=== PATIENT | male | born 1995 | race Caucasian/White ===

== ENCOUNTER 2019-12-27 14:39 | Outpatient (CLI) | payer MEDICARE, MEDICAID, SELFPAY ==
--- NOTE | 2019-12-27 14:50 | XR_ITS ---
WS: [id number] LEFT ANKLE: 2 VIEW(S) TECHNIQUE: AP and lateral. HISTORY: left ankle pain COMPARISON: 02/16/2013 Normal anatomic alignment with no fracture or dislocation. No joint effusion or widening of the ankle mortise. No significant degenerative changes at the joint spaces. No soft tissue abnormality. XR/XR ankle LT 2V [id number] IMPRESSION: Normal LEFT ankle.
--- NOTE | 2019-12-27 14:50 | XR_ITS ---
WS: [id number] RIGHT ANKLE: 2 VIEW(S) TECHNIQUE: AP and lateral. HISTORY: right ankle pain COMPARISON: 08/07/2016 Normal anatomic alignment with no fracture or dislocation. No joint effusion or widening of the ankle mortise. Significant spurring and hypertrophic changes from the anterior talar process. Similar to the prior s tudy. No soft tissue abnormality. XR/XR ankle RT 2V [id number] IMPRESSION: Negative RIGHT ankle. Large hypertrophic osteophyte is again noted from the anterior talar process.
== END 2019-12-27 14:40 | disposition home or self-care (01) ==
LOC: RADWPI 14:46
PROVIDERS: Family Provider Family Medicine; PCP Family Medicine; Visit Provider Family Medicine
DX: M25.571 Pain in right ankle and joints of right foot (principal); M25.572 Pain in left ankle and joints of left foot; M25.771 Osteophyte, right ankle
CPT/HCPCS: 73600

== ENCOUNTER 2020-01-17 15:32 | Outpatient (CLI) | payer MEDICARE, MEDICAID, SELFPAY | END 2020-01-17 15:33 | disposition home or self-care (01) | LOC: SPT 15:40 | PROVIDERS: Family Provider Family Medicine; PCP Family Medicine; Visit Provider Podiatrist Foot & Ankle Surgery | DX: Z46.89 Encounter for fitting and adjustment of other specified devices (principal); M25.572 Pain in left ankle and joints of left foot | CPT/HCPCS: 97760; L1902 ==

== ENCOUNTER → 2020-03-19 11:17 | Outpatient (BNVA) | payer MEDICARE, MEDICAID, SELFPAY | PROVIDERS: Family Provider Family Medicine; PCP Family Medicine; Visit Provider Family Medicine | DX: U07.1 COVID-19 (principal) | CPT/HCPCS: 87635 ==

== ENCOUNTER 2021-12-30 09:01 | Emergency (ER) | payer MEDICARE, MEDICAID, SELFPAY ==
[2021-12-30 09:15] VITALS: BP 146/95; PULSE 76; RESP 16; TEMP 36.8; O2SAT 97; BMI 41.5
--- NOTE | 2021-12-30 12:24 | ED_ITS ---
HPI - Allergic Reaction General: Chief complaint: Allergic Reaction Stated complaint: Face swelling Time Seen by Provider: 12/30/21 09:05 Source: patient Mode of arrival: ambulatory Limitations: no limitations History of Present Illness: HPI narrative: 26-year-old male comes in facial swelling swelling in his hands he also some in the genitalia. He was doing some yard work couple days ago he thinks he got exposed to poison [place] touched various places on his body now he has swelling and a superficial rash. He has not had any fever sweats or chills no difficulty breathing or swallowing. He is taken Benadryl at home with moderate relief MD complaint: allergic reaction Associated symptoms: Reports facial swelling, itching, lip swelling and rash; Deny difficulty breathing, dysphagia, hoarseness, nausea or tongue swelling Severity: moderate Treatment prior to arrival: benadryl Previous Allergic Reaction History: none Review of Systems Const: Denies: fever(s), chills, body aches, change in appetite, fatigue or malaise ENMT: Denies: hoarseness Card: Denies: chest pain, edema, dyspnea on exertion or orthopnea Resp: Denies: dyspnea, productive cough or non-productive cough GI: Denies: nausea or dysphagia : Denies: flank pain, dysuria, urinary frequency or urinary urgency Skin/Breast: Denies: rash or pruritus All/Imm: Reports: facial swelling; Denies: tongue swelling PFSH ED PFSH: Medical History History of amputation of finger Family History Other CAD (coronary artery disease) Cancer Social History Smoking and tobacco status: never smoked Alcohol intake: current Alcohol intake frequency: holidays/special occasions only Physical Exam Const: GENERAL APPEARANCE: cooperative and comfortable ORIENTATION/CONSCIOUSNESS: Yes awake, Yes oriented to person, Yes oriented to place and Yes oriented to time HENMT: COMMON NORMALS: normocephalic, atraumatic, hearing grossly normal bilaterally, external ears normal, EAC's normal, TM's normal bilaterally, Normal nasal mucous membranes and turbinates present, moist oral mucous membranes and oropharynx normal HEAD & SCALP: normocephalic and atraumatic NOSE: Normal nasal mucous membranes and turbinates present EXTERNAL EAR: Yes external ears normal EXTERNAL AUDITORY CANAL: EAC's normal TYMPANIC MEMBRANE: TM's normal bilaterally Eye: COMMON NORMALS: Equal, round and reactive pupils present, EOMs intact bilaterally, conjunctivae normal and no scleral icterus CONJUNCTIVA: Yes conjunctivae normal PUPIL: Yes Equal, round and reactive pupils present Neck/C-Spine: COMMON NORMALS: no JVD Lymph: LYMPHATIC: no lymphadenopathy noted and no lymphedema noted Resp: COMMON NORMALS: normal respiratory effort, No retractions, No use of accessory muscles and clear to auscultation bilaterally AUSCULTATION: clear to auscultation bilaterally Cardio: COMMON NORMALS: no JVD, regular rate, regular rhythm and No murmurs present (Cardio) RATE: regular rate RHYTHM: regular rhythm GI: COMMON NORMALS: Soft to palpation and No hepatosplenomegaly present AUSCULTATION: Yes normoactive bowel sounds PALPATION: Yes Soft to palpation, No Tenderness to palpation present (GI), No Guarding due to palpation present (GI) and Yes No hepatosplenomegaly present Extremity: COMMON NORMALS: capillary refill normal, no clubbing, cyanosis or edema, no calf tenderness and no pedal edema Neuro: SENSORIUM/ORIENTATION: Yes oriented to person, Yes oriented to place and Yes oriented to time Skin: OTHER: Significant facial swelling as well as redness erythema Claire dermatitis rash consistent noxious plant exposure. Course Vital Signs: Vital signs: Vital Signs Temperature 98.2 F 12/30/21 09:15 Pulse Rate 76 12/30/21 09:15 Respiratory Rate 16 12/30/21 09:15 Blood Pressure 146/95 12/30/21 09:15 Pulse Oximetry 97 12/30/21 09:15 MDM - Allergic Reaction Medical Decision Making Discharged home on steroids and respiratory compromise steroid taper and antihistamines avoid exposure follow-up as needed Medical Records I reviewed the patient's medical records. Discharge Plan Discharge Patient Disposition: Home Clinical Impression: Rhus dermatitis Condition: Stable Prescriptions: New prednisone 20 mg tablet 20 mg PO TID Qty: 15 0RF Rx Instructions: 1 p.o. 3 times daily x3 days, 1 p.o. twice daily x2 days, 1 p.o. daily x2 days hydroxyzine HCl 50 mg tablet 50 mg PO Q6H PRN (Reason: itching) Qty: 20 0RF No Action (DME) supinator ankle brace See Rx Instructions .Route .MEDSUPPLY Qty: 1 0RF Rx Instructions: As directed (DME) supinator ankle brace See Rx Instructions .Route .MEDSUPPLY Qty: 1 0RF Rx Instructions: As directed meloxicam [Mobic] 15 mg tablet 15 mg PO DAILY Qty: 90 0RF Discharge Orders: Discharge ED (Routine); Ordered 12/30/21 Ordered By: Romel Boyle Referrals: Tamika Dior DO [Primary Care Provider] - Discharge Diet: Usual diet Discharge Activity: Increase activity as tolerated Patient Instructions: Phytophotodermatitis (ED), Opioid Safety Activity Restrictions/Additional Instructions: You may apply topical steroid antibiotic ointment [id number] to affected areas. When applying to face or genital area apply no more than twice daily, other areas you may apply 3-4 times a day for the next 5 to 7 days. Coding Level of Care Code ED Quill Machine Operator for Alexandr Fwd Exam Comprehensive
== END 2021-12-30 09:52 | disposition home or self-care (01) ==
PROVIDERS: Emergency Provider Family Medicine; PCP Family Medicine
DX: L23.7 Allergic contact dermatitis due to plants, except food (principal)
CPT/HCPCS: 99283

== ENCOUNTER 2023-02-10 15:17 | Emergency (ER) | payer MEDICARE, MEDICAID, SELFPAY ==
[2023-02-10 15:23] VITALS: BP 160/115; PULSE 98; RESP 18; TEMP 36.7; O2SAT 97; BMI 42.7
--- NOTE | 2023-02-10 15:33 | ED_ITS ---
HPI - Allergic Reaction General: Chief complaint: Skin/Abscess/Foreign Body Stated complaint: posterior insect sting Time Seen by Provider: 02/10/23 15:18 Source: patient Mode of arrival: ambulatory Limitations: no limitations History of Present Illness: HPI narrative: Patient is a 27-year-old male who presents to the emergency department complaining of insect sting onset 1 hour prior to arrival. Patient states he was weed eating in a ditch when he suddenly felt a sharp stinging pain to his right buttock. He says that he was able to finish weed eating, but upon inspection following he noticed that there is a significant area of erythema and induration. He reports a history of bee/wasp stings that have resulted in significant erythematous skin reactions, and states that he is here for precautionary reasons. His only complaint at this time is some residual right buttock pain, though this is much improved from initial standing. Mother in the room says that she was able to inspect it after initial staining, and states that the erythema is also improved. Patient denies any chest pain, shortness of breath, angioedema, or any other systemic signs of anaphylaxis or illness. MD complaint: other (Insect sting) Onset (ago): hour(s) (1) Exposure: insect bite (Sting) Associated symptoms: Deny abdominal pain, hoarseness, nausea or vomiting Severity: mild Treatment prior to arrival: none Previous Allergic Reaction History: other (localized reactions-although significant ) Review of Systems Const: Reports: other (Reports insect sting to right buttock with associated pain); Denies: fever(s) or chills Eyes: Denies: change in vision or blurry vision ENMT: Denies: odynophagia, hoarseness or swelling of lips/tongue Card: Denies: chest pain, palpitations, irregular heart rhythm, lightheadedness, syncope or dyspnea on exertion Resp: Denies: dyspnea, productive cough or pain on inspiration GI: Denies: abdominal pain, nausea, vomiting, heartburn or diarrhea : Denies: difficulty urinating or dysuria Musc: Denies: neck pain, back pain or joint pain Skin/Breast: Reports: other (swelling/redness R buttock); Denies: rash PFSH ED PFSH: Medical History History of amputation of finger Family History Other CAD (coronary artery disease) Cancer Social History Alcohol intake: current Alcohol intake frequency: holidays/special occasions only Substance/Drug Use: never Physical Exam Const: COMMON NORMALS: no acute distress, patient oriented x3, no limitations, alert and well nourished NUTRITIONAL APPEARANCE: obese HENMT: COMMON NORMALS: normocephalic and atraumatic HEAD & SCALP: normocephalic and atraumatic Neck/C-Spine: COMMON NORMALS: full ROM, no lymphadenopathy, supple and no meningeal signs Resp: COMMON NORMALS: normal respiratory effort and clear to auscultation bilaterally AUSCULTATION: clear to auscultation bilaterally Cardio: COMMON NORMALS: regular rate and regular rhythm RATE: regular rate RHYTHM: regular rhythm Extremity: COMMON NORMALS: normal to inspection NARRATIVE EXTREMITY EXAM: mild erythema/induration to R buttock consistent with localized reaction to insect bite/sting GENERAL: Yes normal exam except as noted Neuro: COMMON NORMALS: patient oriented x3, moves all extremities, no focal motor deficits and no sensory deficits noted SENSORIUM/ORIENTATION: Yes alert MENINGEAL SIGNS: Yes no meningeal signs Course Vital Signs: Vital signs: Vital Signs Temperature 98.1 F 02/10/23 15:23 Pulse Rate 98 02/10/23 15:23 Respiratory Rate 18 02/10/23 15:23 Blood Pressure 160/115 02/10/23 15:23 Pulse Oximetry 97 02/10/23 15:23 Oxygen Delivery Me thod Room Air 02/10/23 15:23 MDM - Allergic Reaction Medical Decision Making This patient was seen and evaluated today for acute onset right buttock pain and redness following an insect sting. Upon arrival, patient states that his condition was already improving and that he was wanting to be seen for precautionary purposes due to his history of severe skin reactions. His vital signs have remained stable throughout his ED course. Denies dyspnea or throat/lip swelling. Examination of the painful area revealed reportedly improving redness and induration, with no signs of lymphatic spread or severe extension of erythema. He is given a shot of IM Benadryl while in the ER, and is instructed to take [id number] oral Benadryl or apply topical Benadryl as needed. Additionally, he may apply hydrocortisone cream to the area to reduce swelling. He agrees with this plan and will be discharged home. Discharge Plan Discharge Patient Disposition: Home Clinical Impression: Insect sting Qualifiers: Encounter type: initial encounter Injury intent: accidental or unintentional Qualified Code(s): T63.481A - Toxic effect of venom of other arthropod, accidental (unintentional), initial encounter Condition: Stable Prescriptions: No Action meloxicam 15 mg tablet 15 mg PO DAILY Qty: 90 1RF Discharge Orders: Discharge ED (Routine); Ordered 02/10/23 Ordered By: Marielos Villanueva Referrals: Tamika Dior DO [Primary Care Provider] - Activity Restrictions/Additional Instructions: You may use topical or oral Benadryl as needed. For added relief you also may apply hydrocortisone cream as needed. Return to the emergency department for any new or worsening symptoms. Coding Level of Care Code ED Registered Nurse Bone Marrow Transplant for Alexandr King
[2023-02-10] MEDS: diphenhydrAMINE 50 mg/mL SDV 1mL IM (16:31)
[2023-02-10 17:04] VITALS: BP 139/89; PULSE 91; RESP 14; O2SAT 98
== END 2023-02-10 17:05 | disposition home or self-care (01) ==
PROVIDERS: Emergency Provider Physician Assistant; PCP Family Medicine
DX: T63.481A Toxic effect of venom of other arthropod, accidental (unintentional), initial encounter (principal)
CPT/HCPCS: 96372; 99284; J1200

== ENCOUNTER → 2023-06-03 17:39 | Outpatient (BNVA) | payer MEDICARE, MEDICAID, SELFPAY | PROVIDERS: PCP Family Medicine; Visit Provider Nurse Practitioner Family | DX: J02.9 Acute pharyngitis, unspecified (principal) | CPT/HCPCS: 87880 ==

== ENCOUNTER → 2023-07-07 14:50 | Outpatient (BNVA) | payer MEDICARE, MEDICAID, SELFPAY | PROVIDERS: PCP Family Medicine; Visit Provider Podiatrist Foot & Ankle Surgery | DX: M76.821 Posterior tibial tendinitis, right leg; M76.822 Posterior tibial tendinitis, left leg; M21.41 Flat foot [pes planus] (acquired), right foot; M21.42 Flat foot [pes planus] (acquired), left foot | CPT/HCPCS: 73610; 99203 ==

== ENCOUNTER → 2023-09-21 13:16 | Outpatient (BNVA) | payer MEDICARE, MEDICAID, SELFPAY | PROVIDERS: PCP Family Medicine; Visit Provider Podiatrist Foot & Ankle Surgery | DX: M76.821 Posterior tibial tendinitis, right leg; M76.822 Posterior tibial tendinitis, left leg; M21.41 Flat foot [pes planus] (acquired), right foot; M21.42 Flat foot [pes planus] (acquired), left foot | CPT/HCPCS: 99213 ==

== ENCOUNTER → 2024-07-29 11:05 | Outpatient (BNVA) | payer MEDICARE, MEDICAID, SELFPAY | PROVIDERS: PCP Family Medicine; Visit Provider Family Medicine | DX: Z13.220 Encounter for screening for lipoid disorders (principal); Z13.1 Encounter for screening for diabetes mellitus; Z51.81 Encounter for therapeutic drug level monitoring; E66.9 Obesity, unspecified | CPT/HCPCS: 80053; 80061; 83036; 85025 ==

== ENCOUNTER → 2024-09-05 12:40 | Outpatient (BNVA) | payer MEDICARE, MEDICAID, SELFPAY | PROVIDERS: PCP Family Medicine; Visit Provider Nurse Practitioner Family | DX: L72.11 Pilar cyst (principal); L72.9 Follicular cyst of the skin and subcutaneous tissue, unspecified; M67.442 Ganglion, left hand; L57.8 Other skin changes due to chronic exposure to nonionizing radiation; L81.4 Other melanin hyperpigmentation; D22.4 Melanocytic nevi of scalp and neck; D22.5 Melanocytic nevi of trunk; L21.8 Other seborrheic dermatitis; L91.8 Other hypertrophic disorders of the skin; R20.8 Other disturbances of skin sensation; L53.8 Other specified erythematous conditions; L29.89 Other pruritus | CPT/HCPCS: 11200; 99204 ==

== ENCOUNTER → 2024-09-20 13:10 | Outpatient (BNVA) | payer MEDICARE, MEDICAID, SELFPAY | PROVIDERS: PCP Family Medicine; Visit Provider Podiatrist Foot & Ankle Surgery | DX: M21.41 Flat foot [pes planus] (acquired), right foot (principal); M21.42 Flat foot [pes planus] (acquired), left foot; M76.821 Posterior tibial tendinitis, right leg; M76.822 Posterior tibial tendinitis, left leg | CPT/HCPCS: 99213 ==

== ENCOUNTER → 2025-03-20 13:55 | Outpatient (BNVA) | payer MEDICARE, MEDICAID, SELFPAY | PROVIDERS: PCP Family Medicine; Visit Provider Family Medicine | DX: Z00.00 Encounter for general adult medical examination without abnormal findings (principal); Z13.6 Encounter for screening for cardiovascular disorders; Z51.81 Encounter for therapeutic drug level monitoring | CPT/HCPCS: 80053; 80061; 85025 ==

== ENCOUNTER 2025-04-23 14:08 | Emergency (ER) | payer MEDICARE, MEDICAID, SELFPAY ==
--- NOTE | 2025-04-23 14:11 | ECG_ITS ---
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
--- NOTE | 2025-04-23 14:11 | XRR_ITS ---
PROCEDURE INFORMATION: Exam: XR Chest Exam date and time: 04/23/2025 3:38 PM Age: 29 years old Clinical indication: Pain; Chest pressure; Additional info: Cp TECHNIQUE: Imaging protocol: Radiologic exam of the chest. Views: 1 view. COMPARISON: No relevant prior studies available. FINDINGS: Lungs: Unremarkable. No consolidation. Pleural spaces: Unremarkable. No pleural effusion. No pneumothorax. Heart/Mediastinum: Unremarkable. No cardiomegaly. Bones/joints: Unremarkable. XR/XR chest 1V portable [id number] IMPRESSION: No acute findings.
--- OUTSIDE RECORDS SUMMARY | 2025-04-23 14:15 | XMS_ITS | Patient Health Record ---
Author Organization [facility] Address [address] [place] [address] Care Team Providers Care Real Estate Internship Name Role Phone Jaya Ling Unavailable [phone] Reason For Referral No Information Medications Medication SIG (Take, Route, Frequency, Duration) Notes Start Date End Date Status Strattera 18 MG 1 (one) Oral at bedtime 05/18/2012 Not-Taking Axert 12.5 MG 1/2 Oral q 2 hrs, no more than 2 doses per 24 hrs *please review for potential update for e-prescription and drug interaction check* From [facility]. 08/04/2011 Not-Taking Immunizations Vaccine Route Administration Date Status Comme nts *Hep A, ped/adol, 2 dose (VADQA) IM Intramuscular 11/28/2009 Administered *Hep A, ped/adol, 2 dose (VADQA) IM Intramuscular 01/16/2011 Administered *IPV OTH Other/Miscellaneous 02/09/1996 Administered *IPV OTH Other/Miscellaneous 04/21/1996 Administered *IPV OTH Other/Miscellaneous 06/15/1996 Administered *IPV OTH Other/Miscellaneous 03/21/1997 Administered *MMR OTH Other/Miscellaneous 03/21/1997 Administered *MMR OTH Other/Miscellaneous 02/10/2001 Administered *Tdap (Boostrix) IM Intramuscular 01/16/2011 Administered *Varicella (varivax) OTH Other/Miscellaneous 02/25/2000 Administered *Varicella (varivax) SC Subcutaneous 11/28/2009 Administered DTaP, unspecified OTH Other/Miscellaneous 03/21/1997 Administered DTaP, unspecified OTH Other/Miscellaneous 02/10/2001 Administered DTP-Hib OTH Other/Miscellaneous 02/09/1996 Administered DTP-Hib OTH Other/Miscellaneous 04/21/1996 Administered DTP-Hib OTH Other/Miscellaneous 06/15/1996 Administered Hep B, adolescent or pediatric (11-19), 3 dose schedule OTH Other/Miscellaneous 1995 Administered Hep B, adolescent or pediatric (11-19), 3 dose schedule OTH Other/Miscellaneous 01/07/1996 Administered Hep B, adolescent or pediatric (11-19), 3 dose schedule OTH Other/Miscellaneous 06/15/1996 Administered Hib (HbOC), 4 dose schedule OTH Other/Miscellaneous 03/21/1997 Administered meningococcal MCV4, unspecified formulation OTH Other/Miscellaneous 02/02/2008 Partially Administered Td (adult), adsorbed OTH Other/Miscellaneous 05/05/2006 Administered Problems Problem Type SNOMED Code ICD Code Onset Dates Problem Status W/U Status Risk Notes Problem Cough (88525289) Cough (R05) Inactive confirmed Problem Dizziness and giddiness (776182330) Dizziness and giddiness (R42) Inactive confirmed Problem Child health medical examination (649946364) Encounter for routine child health examination without abnormal findings (Z00.129) Inactive confirmed Problem Encounter for other orthopedic aftercare (Z47.89) Inactive confirmed Problem Chest pain (71716833) CHEST PAIN (R07.9) Inactive confirmed Problem Malaise and fatigue (714893230) FATIGUE AND MALAISE (780.79) (780.79) Inactive confirmed Problem Abdominal pain (79259258) ABDOMINAL PAIN (R10.9) Inactive confirmed Problem Surgical follow-up (315874016) FOLLOW-UP EXAMINATION, FOLLOWING SURGERY (V67.00) (V67.00) Inactive confirmed Problem Nausea and vomiting (93781442) N&V (NAUSEA AND VOMITING) (R11.2) Inactive confirmed Description:N AUSEA AND VOMITING Problem VAQTA (HEP A PEDIATRIC) (V05.3) - OFFER IF NOT PREVIOUSLY RECEIVED (V05.3) Inactive confirmed Description :P ROPHYLACTIC VACCINATION AGAINST VIRAL HEPATITIS (V05.3) Problem Contact dermatitis (38262835) CONTACT DERMATITIS AND ECZEMA (L25.9) Inactive confirmed Problem Cephalalgia (48404648) CEPHALALGIA (R51.9) Inactive confirmed Description:H EADACHE Problem Acute pharyngitis (381120386) PHARYNGITIS, ACUTE (462.) (462) Inactive confirmed Problem Contact hand eczema (684651727) DERMATITIS, CONTACT & OTHER ECZEMA UNSPECIFIED CAUSE (692.9) (692.9) Inactive confirmed Problem Ingrowing nail (538509991) INGROWN TOE NAIL (703.0) (703.0) Inactive confirmed Problem Pain in limb (10613236) EXTREMITY PAIN (M79.609) Inactive confirmed Description:P AIN IN LIMB Problem Requires vaccination (652723256) NEED FOR PROPHYLACTIC VACCINATION AGAINST SINGLE BACTERIAL DISEASE (Z23) Inactive confirmed Description:P ROPHYLACTIC VACCINATION AGAINST SINGLE BACTERIAL DISEASE (V03.89) Problem Acute pharyngitis (034767008) PHARYNGITIS, ACUTE (J02.9) Inactive confirmed Problem Chest pain (48180743) CHEST PAIN, UNSPECIFIED (786.50) (786.50) Inactive confirmed Problem FX, STRESS, OTHER BONE (733.95) (733.95) Inactive confirmed Problem VARICELLA (V05.4) (V05.4) Inactive confirmed Problem Hematuria syndrome (75825990) Hematuria, unspecified (599.70) (599.70) Inactive confirmed Problem Arthralgia of the ankle and/or foot (673276679) LEFT ANKLE PAIN (M25.572) Inactive confirmed Problem Foreign body accidentally entering eye and adnexa (718490818) FB ENTERING EYE (E914) Inactive confirmed Description:F OREIGN BODY ACCIDENTALLY ENTERING EYE AND ADNEXA Problem MENINGOCOCCAL - (MENACTRA) IM (V03.89) (V03.89) Inactive confirmed Description:P ROPHYLACTIC VACCINATION AGAINST SINGLE BACTERIAL DISEASE (V03.89) Problem 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 AND OLDER (V06.5) (V06.5) Inactive confirmed Problem Corneal abrasion (disorder) (72590810) ABRASION OF CORNEA (S05.00XA) Inactive confirmed Description:C ORNEAL ABRASION Problem Well child visit (124930613) 10-11 YEAR WELL CHILD CHECK (V20.2) (V20.2) Inactive confirmed Description: W ELL CHILD CHECK (V20.2) Problem Hemorrhage of rectum and anus (961733249) RECTAL BLEEDING (569.3) (569.3) Inactive confirmed Problem ADACEL/BOOSTRIX (TDAP) 11-18 YEARS (V06.1) (V06.1) Inactive confirmed Description:P ROPHYLACTIC VACCINATION WITH COMBINED DIPHTHERIA-TE TANUS-PERTUSS IS (DTaP) VACCINE (V06.1) Problem Morbid obesity (590851585) OBESITY, MORBID (E66.01) Inactive confirmed Problem Dizziness and giddiness (111883360) VERTIGO/DIZZINES S (780.4) (780.4) Inactive confirmed Problem Diarrhea (97268183) D (DIARRHEA) (R19.7) Inactive confirmed Description:D IARRHEA Problem Morbid obesity (733421909) OBESITY, MORBID (278.01) (278.01) Inactive confirmed Problem INGROWN TOE NAIL OTHER AND UNSPECIFIED SUPERFICIAL INJURY OF FOOT AND TOES, INFECTED (917.9) (917.9) Inactive confirmed Problem Obesity (919426478) OBESITY, UNSPECIFIED (278.00) (278.00) Inactive confirmed Problem Fever (103786475) SYMPTOM, FEVER, UNSPECIFIED (780.60) (780.60) Inactive confirmed Problem Impetigo (41076772) IMPETIGO (L01.00) Inactive confirmed Problem Fever (683526742) FEVER (R50.9) Inactive confirmed Problem Ingrown toenail (489207381) INGROWN TOENAIL (L60.0) Inactive confirmed Problem Stress fracture of metatarsal bone (479546352) METATARSAL STRESS FRACTURE (M84.376A) Inactive confirmed Problem INSECT BITE, NONVENOMOUS OF FACE, NECK, AND SCALP EXCEPT EYE, INFECTED (910.5) (910.5) Inactive confirmed Problem ORTHOPEDIC AFTERCARE NEC (V54.89) (V54.89) Inactive confirmed Problem Attention deficit disorder without hyperactivity (32839728) ATTENTION DEFICIT DISORDER WITHOUT HYPERACTIVITY (F98.8) Inactive confirmed Problem History of noncompliance with medication regimen (983897172) NON-COMPLIANCE (V15.81) (V15.81) Inactive confirmed Problem Well child visit (695018476) 14-15 YEAR WELL CHILD CHECK (V20.2) (V20.2) Inactive confirmed Description: W ELL CHILD CHECK (V20.2) Problem Migraine (19605243) MIGRAINE, UNSPECIFIED, W/O INTRACTABLE MIGRAINE (346.90) (346.90) Inactive confirmed Problem Requires varicella vaccination (finding) (427760464) NEED FOR PROPHYLACTIC VACCINATION AND INOCULATION AGAINST VARICELLA (Z23) Inactive confirmed Problem Requires vaccination (019176978) NEED FOR PROPHYLACTIC VACCINATION WITH TETANUS-DIPHTHER IA (TD) (Z23) Inactive confirmed Problem Nausea (687985483) NAUSEA WITHOUT VOMITING (787.02) (787.02) Inactive confirmed Problem Back ache (175615138) BACK ACHE (M54.9) Inactive confirmed Description:B ACK PAIN Problem Obesity (279851692) OBESITY (E66.9) Inactive confirmed Problem Rectal bleeding (21337691) RECTAL BLEEDING (K62.5) Inactive confirmed Problem Migraine variant with headache (disorder) (826131601) MIGRAINE HEADACHE (G43.909) Inactive confirmed Problem Attention deficit hyperactivity disorder, 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) ATTENTION DEFICIT DISORDER (CHILD OR ADULT) WITHOUT MENTION OF HYPERACTIVITY (314.00) (314.00) Inactive confirmed Problem Allergic rhinitis (99499336) ALLERGIC RHINITIS (J30.9) Inactive confirmed Problem Malaise and fatigue (501976286) MALAISE AND FATIGUE (R53.81) Inactive confirmed Problem History and physical examination, follow-up (294171855) FOLLOW-UP EXAMINATION FOLLOWING SURGERY (Z09) Inactive confirmed Comment:s/p I&D of paronychia doing to each big toe doing well, Problem HEP A PEDIATRIC (V05.3) - OFFER IF NOT PREVIOUSLY RECEIVED (V05.3) Inactive confirmed Description :P ROPHYLACTIC VACCINATION AGAINST VIRAL HEPATITIS (V05.3) Problem Onychia of toe (902898843) PARONYCHIA (681.11) (681.11) Inactive confirmed Problem Impetigo (81973751) IMPETIGO (684.) (684) Inactive confirmed Problem Hematuria (68379473) HEMATURIA (R31.9) Inactive confirmed Problem Paronychia (21521831) PARONYCHIA (681.9) Inactive confirmed Comment:both borders of the left hallux nail and the medial border of the right hallux nail, Problem BLEEDING FROM THE NOSE (R04.0) Inactive confirmed Description :E PISTAXIS Problem Stress fracture of metatarsal bone (236139039) FRACTURE STRESS (733.94) (733.94) Inactive confirmed Problem Allergic rhinitis (47624229) ALLERGIC RHINITIS, CAUSE UNSPECIFIED (477.9) (477.9) Inactive confirmed Problem Vomiting without nausea (615926716210423 ) NAUSEA WITHOUT VOMITING (R11.0) Inactive confirmed Problem Dehydration (66102069) BODY WATER DEHYDRATION (E86.0) Inactive confirmed Description:D EHYDRATION Problem SPRAIN/STRAIN, ANKLE, DISTAL TIBIOFIBULAR (845.03) (845.03) Inactive confirmed Problem History and physical examination, administrative (88432001) OTHER GENERAL MEDICAL EXAMINATION FOR ADMINISTRATIVE PURPOSES (Z02.89) Inactive confirmed Problem Acute osteomyelitis (590136982) OSTEOMYELITIS, ACUTE (M86.10) Problem resolved confirmed Problem Acute osteomyelitis of ankle and/or foot (480455341) OSTEOMYELITIS ACUTE (730.07) (730.07) Problem resolved confirmed Plan Of Treatment No Information Insurance Providers Payer Name Payer Address Payer Phone Subscriber Number Group Number Insured Name Patient Relationship to Insured Coverage Start Date Coverage End Date [place] [employer] [address] [place] [address] [id number] HAN VINCENT Self - patient is the insured Medical (General) History Surgical History Surgery Date(Month/Year) PE TUBES, ProblemStatus: Active, 1996-06 Accidental Amputation of the Right 5th Finger, ProblemStatus: Active, 2002-06-29
[2025-04-23 14:17] VITALS: BP 130/81; PULSE 75; RESP 16; TEMP 36.4; O2SAT 100
--- NOTE | 2025-04-23 14:25 | USR_ITS ---
PROCEDURE INFORMATION: Exam: US Abdomen, Limited; Right Upper Quadrant Exam date and time: 04/23/2025 3:25 PM Age: 29 years old Clinical indication: Abdominal pain; Epigastric; Additional info: Ruq pain TECHNIQUE: Imaging protocol: Real time ultrasound of the abdomen with image documentation. Limited exam focused on the right upper quadrant. COMPARISON: No relevant prior studies available. FINDINGS: Liver: Increased hepatic echogenicity suggesting steatosis. Gallbladder: Cholelithiasis. The gallbladder wall is thickened at 5 mm. Biliary ducts: Common duct is normal. Pancreas: The pancreas is obscured by bowel gas. Right kidney: Normal. No mass. No hydronephrosis. US/US gall bladder [id number] IMPRESSION: Cholelithiasis with a thickened gallbladder wall.
[2025-04-23 15:04] LABS: Hematocrit 48.1 % (37-53); Hemoglobin 15.50 g/dL (11.27-16.99); Mean Corpuscular HGB Conc 32.2 g/dL (30-55); Mean Corpuscular Hemoglobin 29.5 pg (27-33); Mean Corpuscular Volume 91.6 fl (82-101); Nucleated Red Blood Cells % 0 %; Platelet Count 189 10^3/cmm (157-399); Red Blood Count 5.25 10^6/uL (3.85-5.65); White Blood Count 8.60 10^3/uL (3.29-11.43)
--- NOTE | 2025-04-23 15:18 | W.ED.ABDPA2 ---
HPI - Abdominal Pain General: Chief Complaint: Abdominal Pain Stated Complaint: chest pain Time Seen by Provider: 04/23/25 15:04 Source: patient Mode of arrival: ambulatory Limitations: no limitations History of Present Illness: 20-year-old male states he had an episode of chest pain this morning along with some epigastric and right upper quadrant pain. States pain was sharp in nature had 1 episode of vomiting since the pain is resolved. He states he had a previous episode that was the same last week. Denies any fevers he denies any worsening factors. Patient again is completely pain-free at this time. Associated Symptoms: Reports vomiting Related Data Previous Rx's ?Medication ?Instructions ?Recorded Sole supports #1 ea 07/07/23 Allergies Allergy/AdvReac Type Severity Reaction Status Date / Time poison sumac extract Allergy ADR-Swelling Verified 09/20/24 13:14 of the Eye promethazine (From Phenergan) AdvReac Mild unknown Verified 09/20/24 13:14 Review of Systems Card: Reports: chest pain GI: Reports: abdominal pain and vomiting PFS ED PFSH: Surgical History History of placement of ear tubes Hx of wisdom tooth extraction Sebaceous cyst About 4-5 have been removed on the scalp History of amputation of finger Family History Father , in head on wreck while he was driving semi CAD (coronary artery disease) Grandfather CAD (coronary artery disease) Other Cancer Social History Smoking and tobacco/nicotine status: never used tobacco/nicotine Alcohol intake: current Alcohol intake frequency: holidays/special occasions only Substance/Drug Use: never 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: On Disability for 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, feet, back and scoliosis Physical Exam Const: COMMON NORMALS: no acute distress, patient oriented x3 and healthy appearing HENMT: COMMON NORMALS: normocephalic and atraumatic HEAD & SCALP: normocephalic and atraumatic Neck/C-Spine: COMMON NORMALS: full ROM and supple Chest: COMMONS NORMALS: normal inspection of the chest and normal palpation of entire chest wall Resp: COMMON NORMALS: normal respiratory effort, No retractions, No use of accessory muscles and clear to auscultation bilaterally AUSCULTATION: clear to auscultation bilaterally Cardio: COMMON NORMALS: regular rate, regular rhythm and No murmurs present (Cardio) RATE: regular rate RHYTHM: regular rhythm GI: COMMON NORMALS: Normal to inspection, nondistended, normoactive bowel sounds present, Soft to palpation, non-tender and no masses PALPATION: Yes Soft to palpation Extremity: COMMON NORMALS: normal to inspection and full ROM Neuro: COMMON NORMALS: patient oriented x3, moves all extremities and no focal motor deficits Psych: COMMON NORMALS: mental status grossly normal, Normal thought process present and cooperative THOUGHT PROCESS: Normal thought process present Skin: COMMON NORMALS: no rashes or lesions noted and no wounds GENERAL SKIN EXAM: no rashes or lesions noted Course Vital Signs: Vital signs: Vital Signs Temperature 97.6 F 04/23/25 14:17 Pulse Rate 75 04/23/25 14:17 Respiratory Rate 16 04/23/25 14:17 Blood Pressure 130/81 04/23/25 14:17 Pulse Oximetry 100 04/23/25 14:17 Oxygen Delivery Me thod Room Air 04/23/25 14:17 Clincial Decision Support The following clinical decision support tools were used to aid in care of the patient HEART Score -> History: Slightly Suspicous, EKG: Normal, Age: Less than 45 yrs, Risk Factors: No Risk Factors Known, Troponin: Baseline Trop <16 ng/L. Resulting HEART Score: 0. MDM - Abdominal Pain Medical Decision Making Patient presents here with abdominal pain is epigastric right upper quadrant. His pain is since resolved he had some pain into his chest. Differential includes pancreatitis, cholecystitis, biliary colic. Patient's chest pain is atypical his troponin here is negative heart score is 0 no signs of ACS. Blood work including lipase and white count are normal. He has no signs of acute cholecystitis does have gallstones on his ultrasound. His abdominal exam at this time is benign with no tenderness. I did inform him of the lab findings along with the ultrasound we will refer him to surgery he is to follow-up with his PCP as well he understands agrees to plan. Medical Records I reviewed the patient's medical records. Lab Data I reviewed the patient's lab results. 04/23/25 14:55 04/23/25 14:55 Labs/Radiology: Laboratory Results WBC 8.60 10^3/uL (3.29-11.43) 04/23/25 14:55 RBC 5.25 10^6/uL (3.85-5.65) 04/23/25 14:55 Hgb 15.50 g/dL (11.27-16.99) 04/23/25 14:55 Hct 48.1 % (37-53) 04/23/25 14:55 MCV 91.6 fl (82-101) 04/23/25 14:55 MCH 29.5 pg (27-33) 04/23/25 14:55 MCHC 32.2 g/dL (30-55) 04/23/25 14:55 RDW 12.7 % (12.1-15.1) 04/23/25 14:55 Plt Count 189 10^3/cmm (157-399) 04/23/25 14:55 MPV 11.2 fL (7.4-10.4) H 04/23/25 14:55 Neut % (Auto) 74.6 % 04/23/25 14:55 Lymph % (Auto) 15.8 % 04/23/25 14:55 [place] % (Auto) 7.0 % 04/23/25 14:55 Eos % (Auto) 1.5 % 04/23/25 14:55 Baso % (Auto) 0.6 % 04/23/25 14:55 Neut # (Auto) 6.42 10^3/uL (1.8-7.7) 04/23/25 14:55 Lymph # (Auto) 1.4 10^3/uL (0.8-4.8) 04/23/25 14:55 [place] # (Auto) 0.6 10^3/uL (0.2-0.9) 04/23/25 14:55 Eos # (Auto) 0.1 10^3/uL (0.0-0.8) 04/23/25 14:55 Baso # (Auto) 0.1 10^3/uL (0.0-0.1) 04/23/25 14:55 Nucleated RBC % (auto) 0 % 04/23/25 14:55 Nucleated RBCs # 0.0 /100WBC 04/23/25 14:55 Sodium 140 mmol/L (136-145) 04/23/25 14:55 Potassium 4.3 mmol/L (3.5-5.1) 04/23/25 14:55 Chloride 102 mmol/L (98-107) 04/23/25 14:55 Carbon Dioxide 26 mmol/L (22-29) 04/23/25 14:55 Anion Gap 16.3 (5-19) 04/23/25 14:55 BUN 15 mg/dL (6-20) 04/23/25 14:55 Creatinine 1.0 mg/dL (0.7-1.2) 04/23/25 14:55 GFR Calculation 88.3 mL/min (90-130) L 04/23/25 14:55 Glucose 96 mg/dL (65-115) 04/23/25 14:55 Calculated Osmolality 291 mOsm/kg (285-295) 04/23/25 14:55 Calcium 9.4 mg/dL (8.5-10.5) 04/23/25 14:55 Total Bilirubin 1.2 mg/dL (0.15-1.2) 04/23/25 14:55 AST 63 U/L (0-40) H 04/23/25 14:55 ALT 52 U/L (0-41) H 04/23/25 14:55 Alkaline Phosphatase 64 U/L (40-130) 04/23/25 14:55 Troponin T Baseline < 6 ng/L (0-15) 04/23/25 14:55 Total Protein 7.5 g/dL (6.6-8.7) 04/23/25 14:55 Albumin 4.5 g/dL (3.5-5.2) 04/23/25 14:55 Globulin 3.0 g/dL (1.3-4.6) 04/23/25 14:55 Lipase 22 U/L (13-60) 04/23/25 14:55 All radiology interpretation(s) finalized by discharge EKG Data EKG 1: I personally reviewed and interpreted this EKG as follows: EKG interpretation date: 04/23/25 EKG interpretation time: 14:14 Interpretation: nsr hr [address] elevation qrs 96 qtc 405 Discharge Plan Discharge Patient Disposition: Home Clinical Impression: Abdominal pain Qualifiers: Abdominal location: epigastric Qualified Code(s): R10.13 - Epigastric pain Cholelithiasis Qualifiers: Cholelithiasis location: gallbladder Cholecystitis presence: without cholecystitis Biliary obstruction: without biliary obstruction Qualified Code(s): K80.20 - Calculus of gallbladder without cholecystitis without obstruction Condition: Stable Prescriptions: No Action (DME) Sole supports See Rx Instructions .Route .MEDSUPPLY Qty: 1 0RF Rx Instructions: As directed Discharge Orders: Discharge ED (Routine); Ordered 04/23/25 Ordered By: Dawit Santacruz Referrals: Dallin Garcia MD [Physician, General Surgery] - 4-7 days Steve Fields MD [Primary Care Provider, Family Practice] - 4-7 days Discharge Diet: Advance as tolerated Discharge Activity: Resume usual activity Patient Instructions: Gallstones (ED), Abdominal Pain (ED) Print Language: Latvian Coding Level of Care Code ED 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
[2025-04-23 15:24] LABS: Troponin(5th) Baseline < 6 ng/L (0-15)
[2025-04-23 15:31] LABS: Alanine Aminotransferase 52 U/L (0-41); Albumin Level 4.5 g/dL (3.5-5.2); Alkaline Phosphatase 64 U/L (40-130); Anion Gap 16.3 (5-19); Aspartate Amino Transferase 63 U/L (0-40); Blood Urea Nitrogen 15 mg/dL (6-20); Calcium 9.4 mg/dL (8.5-10.5); Carbon Dioxide 26 mmol/L (22-29); Chloride 102 mmol/L (98-107); Creatinine Clr Calc Pharmacy 174.7233; Globulin 3.0 g/dL (1.3-4.6); Glucose 96 mg/dL (65-115); Lipase 22 U/L (13-60); Osmolality Calculated 291 mOsm/kg (285-295); Potassium 4.3 mmol/L (3.5-5.1); Sodium 140 mmol/L (136-145); Total Protein 7.5 g/dL (6.6-8.7)
[2025-04-23 16:14] VITALS: RESP 14; O2SAT 99
[2025-04-23 16:19] VITALS: BP 132/72; PULSE 76; RESP 16; O2SAT 100
--- NOTE | 2025-04-24 08:02 | DCPLANNER ---
messaged gen surg for er f/u
== END 2025-04-23 16:22 | disposition home or self-care (01) ==
PROVIDERS: Emergency Provider Emergency Medicine; PCP Family Medicine
DX: R10.13 Epigastric pain (principal); K80.20 Calculus of gallbladder without cholecystitis without obstruction
CPT/HCPCS: 36415; 71045; 76705; 80053; 83690; 84484; 85025; 93005; 99285

== ENCOUNTER → 2025-05-04 11:09 | Outpatient (BNVA) | payer MEDICARE, MEDICAID, SELFPAY | PROVIDERS: PCP Family Medicine; Visit Provider Student in an Organized Health Care Education/Training Program | DX: K82.9 Disease of gallbladder, unspecified (principal); R79.89 Other specified abnormal findings of blood chemistry | CPT/HCPCS: 99204 ==

== ENCOUNTER 2025-05-18 07:09 | Outpatient (CLI) | payer MEDICARE, MEDICAID, SELFPAY ==
--- NOTE | 2025-05-18 07:15 | MR_ITS ---
WS: [id number] MRCP (MAGNETIC RESONANCE CHOLANGIOPANCREATOGRAPHY) HISTORY: elevated LFT's COMPARISON: Gallbladder ultrasound 04/23/2025. TECHNIQUE: Multiple sequences are performed to evaluate the intra and extrahepatic ducts. Liver is top normal size measuring 17 cm in length. Mild diffuse hepatic steatosis throughout the liver. No intrahepatic duct dilatation. No cysts or solid masses are identified. Gallbladder is normally distended. No adjacent fluid is identified. The stones described on recent ultrasound are not as alessandro arent by MRI. Common bile duct is normal measuring 3.5 mm. No filling defects. There is no pancreatic duct dilatation. No inflammation surrounding the duodenum. No inflammation surrounding the pancreas. Normal size spleen. No adrenal mass. No renal obstruction. Superior pole LEFT renal cyst measures 11 mm. Normal aorta. No adenopathy or ascites. No pleural effusions. MR/MR MRCP 13459 IMPRESSION: 1. Normal common bile duct. No intraluminal filling defects. 2. No pancreatic duct or intrahepatic duct dilatation. 3. Normally distended gallbladder. The gallstones seen on recent ultrasound ar e not as well visualized by MRI. 4. Liver measures top normal size with hepatic steatosis. 5. Superior pole LEFT renal cyst, 11 mm.
== END 2025-05-18 07:10 | disposition home or self-care (01) ==
LOC: RAD 07:09
PROVIDERS: PCP Family Medicine; Visit Provider Student in an Organized Health Care Education/Training Program
DX: R79.89 Other specified abnormal findings of blood chemistry (principal); K76.0 Fatty (change of) liver, not elsewhere classified; N28.1 Cyst of kidney, acquired
CPT/HCPCS: 74181

== ENCOUNTER → 2025-05-26 09:16 | Outpatient (BNVA) | payer MEDICARE, MEDICAID, SELFPAY | PROVIDERS: PCP Family Medicine; Visit Provider Student in an Organized Health Care Education/Training Program | DX: R10.9 Unspecified abdominal pain (principal) | CPT/HCPCS: 99213 ==